=== PATIENT | female | born 1980 | race Caucasian/White ===

== ENCOUNTER 2016-05-04 19:03 | Emergency (ER) | payer BC ==
[2016-05-04] MEDS ORDERED: LIDOCAINE/EPI 1% MDV 20 ML ONE (19:38)
[2016-05-04] MEDS ORDERED: TDaP 0.5 ML VIAL IM.VACC ONE (19:39)
== END 2016-05-04 20:29 | disposition home or self-care (01) ==
LOC: FASTR 19:03
DX: S61.512A Laceration without foreign body of left wrist, initial encounter (principal); W45.8XXA Other foreign body or object entering through skin, initial encounter; Y92.63 Factory as the place of occurrence of the external cause; Z23 Encounter for immunization
CPT/HCPCS: 90471